=== PATIENT | female | born 1985 | race Caucasian/White ===

== ENCOUNTER 2017-05-27 12:53 | Inpatient (IN) | payer OTHER ==
[2017-05-27] MEDS ORDERED: Ondansetron INJ* 2 MG/ML VIAL IV ONE (16:09)
[2017-05-27] MEDS ORDERED: Morphine INJ* 4 MG/ML 1 ML SYRINGE IV ONE ×3 (16:09→21:08)
[2017-05-27] MEDS ORDERED: NS 0.9% 1000 ML* 1,000 ML IV ONE (16:09)
[2017-05-27 16:47] LABS: Hematocrit 34 % (35-47); Hemoglobin 11.5 g/dl (12.0-16.0); Mean Corpuscular HGB Conc 34 g/dl (31-36); Mean Corpuscular Hemoglobin 29 pg (27-31); Mean Corpuscular Volume 84 fL (80-97); Mean Platelet Volume 8 um3 (7.4-10.4); Red Blood Count 4.01 10^6/ul (4.0-5.4); Red Cell Distribution Width 13 % (10.5-15)
[2017-05-27 17:02] LABS: Albumin 3.4 g/dL (3.2-5.2); BUN/Creatinine Ratio 17.3 (8-20); C Reactive Protein 34.11 mg/L (< 5.00); Calcium 8.6 mg/dL (8.6-10.3); EGFR African American 175.7 (>60); EGFR Non-African American 136.7 (>60); Potassium 3.9 mmol/L (3.5-5.0); Total Bilirubin 0.4 mg/dL (0.2-1.0); Total Protein 7.4 g/dL (6.4-8.9)
--- NOTE | 2017-05-27 20:57 | RAD ---
Indication: Wrist abscess. Image sequences: Axial proton density, T2 fat sat, T1, sagittal STIR, coronal T2, coronal proton density and coronal T1-weighted images were obtained. Sagittal T1-weighted images were also obtained. Diffuse subcutaneous edema is noted. In the area of the palpable mass there is a fluid collection which appears to be within the flexor carpi ulnaris muscle. The fluid component measures approximately 11 x 10 mm. This is on the volar aspect of the muscle. There is diffuse edema throughout the remainder of the flexor carpi ulnaris muscle. This may represent an element of myositis. There is a small amount of fluid surrounding the flexor digitorum superficialis muscle and tendons at the level of the abscess. The ulnar nerve is otherwise unremarkable. No evidence of bone marrow edema is noted in the distal radius or ulna. The visualized carpal bones are grossly unremarkable. IMPRESSION: DIFFUSE SUBCUTANEOUS EDEMA AND LIKELY REACTIVE FLUID SURROUNDING THE FLEXOR DIGITORUM SUPERFICIALIS TENDONS. THERE IS A FLUID COLLECTION IN THE FLEXOR CARPI ULNARIS MUSCLE MEASURING APPROXIMATELY 10 X 11 MM. THERE IS HOWEVER DIFFUSE EDEMA THROUGHOUT THE REMAINDER OF THE VISUALIZED PORTIONS OF THE FLEXOR CARPI ULNARIS MUSCLE. THIS MAY REPRESENT AN ABSCESS WITH MYOSITIS.
[2017-05-27] MEDS ORDERED: Vancomycin(*) 1,000 MG in NS 0.9% 250 ML* 250 ML IVPB ONE (21:15)
--- NOTE | 2017-05-27 22:37 | ED ---
Arash Jalloh Auryana, scribed for Reyna Chu MD on 05/27/17 at 1605 . Skin Complaint - HPI Summary HPI Summary: 32 year old female presents with left arm pain, swelling, and erythema starting yesterday. Patient reports that 1.5 weeks ago used heroin - due to boyfriend's relapse. She reports hasn't used since her relapse 1.5 weeks ago and hadn't used prior to that for 4 years. She reports that she has had trouble moving her left wrist. Ibuprofen at 05:00 AM. She denies any fevers. 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 SHx is significant for tobacco use. - History of Current Complaint Chief Complaint: EDRashSkinAbscess Time Seen by Provider: 05/27/17 15:30 Stated Complaint: LT ARM INFECTION/PAIN Hx Obtained From: Patient Hx Last Menstrual Period: week ago Onset/Duration: Started Days Ago - yesterday, Still Present Skin Exposure Onset/Duration: Weeks Ago - 1.5 Timing: Constant Onset Severity: Moderate Current Severity: Severe Pain Intensity: 9 Pain Scale Used: 0-10 Numeric Skin Location: Discrete - at the left wrist Character: Swelling, Pain, Redness Aggravating Symptom(s): Other: - movement Associated Signs & Symptoms: Negative Related History: Other: - IVDA - Allergy/Home Medications Allergies/Adverse Reactions: Allergies Allergy/AdvReac Type Severity Reaction Status Date / Time No Known Allergies Allergy Verified 05/27/17 15:53 PMH/Surg Hx/FS Hx/Imm Hx Endocrine/Hematology History: Denies: Hx Anticoagulant Therapy, Hx Diabetes, Hx Thyroid Disease Cardiovascular History: Denies: Hx Hypertension, Hx Pacemaker/ICD Respiratory History: Denies: Hx Asthma, Hx Chronic Obstructive Pulmonary Disease (COPD) History: Reports: Hx Kidney Infection - hx stones Denies: Hx Renal Disease - Kidney Infections, Other Problems/Disorders - Hx of kidney stones Neurological History: Denies: Hx Dementia, Hx Seizures Psychiatric History: Reports: Hx Depression, Hx Community Mental Health Tx - Pt follows with MD Johnson at [facility], Hx Substance Abuse - Surgical History Surgery Procedure, Year, and Place: C Section Infectious Disease History: No Infectious Disease History: Reports: Hx Hepatitis - Hep C Denies: Hx Human Immunodeficiency Virus (HIV), Traveled Outside the [place] in Last 30 Days - Family History Known Family History: Positive: Cardiac Disease, Diabetes - Social History Alcohol Use: None Hx Substance Use: Yes Substance Use Type: Reports: Heroin Substance Use Comment - Amount & Last Used: see comment section below Hx Tobacco Use: Yes Smoking Status (MU): Current Every Day Smoker Type: Cigarettes Amount Used/How Often: 1/2 PPD Have You Smoked in the Last Year: Yes Review of Systems Constitutional: Negative Negative: Fever Eyes: Negative ENT: Negative Cardiovascular: Negative Respiratory: Negative Gastrointestinal: Negative Genitourinary: Negative Musculoskeletal: Negative Skin: Negative Neurological: Negative Psychological: Normal All Other Systems Reviewed And Are Negative: Yes Physical Exam - Summary Physical Exam Summary: General: Well appearing, no pain distress Skin: Warm, Skin Color Reflects Adequate Perfusion, Dry. left wrist with erythema over the flexor of the surface of the wrist - 20 cm by 10 cm. Eyes: EOMI, EUGENE ENT: Pharynx normal, TMs normal Neck: Supple, nontender Respiratory: CTA, breath sounds present, no rhonchi, no wheezes, no rales Cardiovascular: RRR, no murmur, no rub, no gallop Abdomen: Soft, nontender, Non-distended, no guarding, no rebound Bowel: Present Musculoskeletal: ANGY, No edema Neuro: Sensory/motor intact, A&Ox3, CN intact 2-12 Psych: Affect/mood appropriate Triage Information Reviewed: Yes Vital Signs On Initial Exam: Initial Vitals Temp Pulse Resp BP Pulse Ox 97.5 F 80 16 140/76 100 05/27/17 12:57 05/27/17 12:57 05/27/17 12:57 05/27/17 12:57 05/27/17 12:57 Vital Signs Reviewed: Yes Diagnostics - Vital Signs Vital Signs Temp Pulse Resp BP Pulse Ox 05/27/17 14:28 98.4 F 81 16 121/74 100 05/27/17 12:57 97.5 F 80 16 140/76 100 - Laboratory Lab Results: Lab Results 05/27/17 05/27/17 05/27/17 Range/Units 16:40 16:40 16:40 WBC 10.0 (3.5-10.8) 10^3/ul RBC 4.01 (4.0-5.4) 10^6/ul Hgb 11.5 L (12.0-16.0) g/dl Hct 34 L (35-47) % MCV 84 (80-97) fL MCH 29 (27-31) pg MCHC 34 (31-36) g/dl RDW 13 (10.5-15) % Plt Count 202 (150-450) 10^3/ul MPV 8 (7.4-10.4) um3 Neut % (Auto) 70.2 (38-83) % Lymph % (Auto) 20.7 L (25-47) % Lanier % (Auto) 6.6 (1-9) % Eos % (Auto) 1.0 (0-6) % Baso % (Auto) 1.5 (0-2) % Absolute Neuts (auto) 7.0 (1.5-7.7) 10^3/ul Absolute Lymphs (auto) 2.1 (1.0-4.8) 10^3/ul Absolute Monos (auto) 0.7 (0-0.8) 10^3/ul Absolute Eos (auto) 0.1 (0-0.6) 10^3/ul Absolute Basos (auto) 0.1 (0-0.2) 10^3/ul Absolute Nucleated RBC 0 10^3/ul Nucleated RBC % 0 Sodium 136 (133-145) mmol/L Potassium 3.9 (3.5-5.0) mmol/L Chloride 107 (101-111) mmol/L Carbon Dioxide 24 (22-32) mmol/L Anion Gap 5 (2-11) mmol/L BUN 9 (6-24) mg/dL Creatinine 0.52 (0.51-0.95) mg/dL Est GFR ( Amer) 175.7 (>60) Est GFR (Non-Af Amer) 136.7 (>60) BUN/Creatinine Ratio 17.3 (8-20) Glucose 96 (70-100) mg/dL Lactic Acid 0.6 (0.5-2.0) mmol/L Calcium 8.6 (8.6-10.3) mg/dL Total Bilirubin 0.40 (0.2-1.0) mg/dL AST 14 (13-39) U/L ALT 13 (7-52) U/L Alkaline Phosphatase 62 (34-104) U/L C-Reactive Protein 34.11 H (< 5.00) mg/L Total Protein 7.4 (6.4-8.9) g/dL Albumin 3.4 (3.2-5.2) g/dL Globulin 4.0 (2-4) g/dL Albumin/Globulin Ratio 0.9 L (1-3) Result Diagrams: 05/27/17 16:40 05/27/17 16:40 Lab Statement: Any lab studies that have been ordered have been reviewed, and results considered in the medical decision making process. - Additional Comments Diagnostic Additional Comments: MRI UPPER EXTREMITY LEFT : IMPRESSION: DIFFUSE SUBCUTANEOUS EDEMA AND LIKELY REACTIVE FLUID SURROUNDING THE FLEXOR DIGITORUM SUPERFICIALIS TENDONS. THERE IS A FLUID COLLECTION IN THE FLEXOR CARPI ULNARIS MUSCLE MEASURING APPROXIMATELY 10 X 11 MM. THERE IS HOWEVER DIFFUSE EDEMA THROUGHOUT THE REMAINDER OF THE VISUALIZED PORTIONS OF THE FLEXOR CARPI ULNARIS MUSCLE. THIS MAY REPRESENT AN ABSCESS WITH MYOSITIS. Course/Dx - Course Course Of Treatment: 32 yo female on suboxone with a relapse about 7 days ago with abscess for flexor surface of wrist concerning for wrist held in flexion and fingers held in flexion with pain with passive extension. Case discussed with Dr. Le who suggested mri to rule out flexor sheath involvement, mri does show involvement and pt was given 1gram of vanco and admitted by Dr. Le for wash out tomorrow am - Diagnoses Provider Diagnoses: Infection of flexor tendon sheath, Abscess, wrist, IVDU (intravenous drug user) - Physician Notifications Discussed Care Of Patient With: Haider Le Time Discussed With Above Provider: 16:25 - recommends MRI adn admission Discharge - Discharge Plan Condition: Stable Disposition: ADMITTED TO [facility] Referrals: Jax Vazquez MD [Primary Care Provider] - The documentation as recorded by the Arash figueroa Auryana accurately reflects the service I personally performed and the decisions made by me, Reyna Chu MD.
[2017-05-27] MEDS ORDERED: Ondansetron TAB* 4 MG PO PRN (23:36)
[2017-05-27] MEDS ORDERED: Ondansetron INJ* 2 MG/ML VIAL IV PRN (23:36)
[2017-05-27] MEDS ORDERED: diPHENhydraMINE PO* 25 MG PO PRN (23:37)
[2017-05-27] MEDS ORDERED: diPHENhydraMINE IV* 50 MG/ML 1 ml VIAL (BENADRYL) IV PRN (23:37)
[2017-05-27] MEDS: NS 0.9% 1000 ML* 1,000 ML IV SCH (23:50)
[2017-05-28] MEDS: Morphine INJ* 2 MG/ML 1 ML SYRINGE IV PRN ×2 (00:23→04:18)
[2017-05-28] MEDS: Acetaminophen TAB* 325 MG PO PRN ×2 (00:26→21:30)
[2017-05-28] MEDS ORDERED: Nicotine Patch Removal NOTE FOLLOW UP SCH (06:00)
[2017-05-28] MEDS: Morphine INJ* 4 MG/ML 1 ML SYRINGE IV PRN ×5 (06:26→23:27)
[2017-05-28] MEDS: Nicotine PATCH 21 MG/24 HR* PATCH TRANSDERM SCH (06:26)
[2017-05-28] MEDS: Nicotine Inhaler* 10 MG AMP INH PRN ×3 (06:27→23:30)
[2017-05-28] MEDS: Nicotine GUM* 2 MG PO PRN ×3 (06:28→18:47)
[2017-05-28] MEDS ORDERED: Vancomycin per Pharmacy* NOTE FOLLOW UP PRN (07:32)
[2017-05-28] MEDS ORDERED: VANCOMYCIN 1500 MG X 1 DOSE, THEN PER PHARMACY PROTOCOL IVPB ONE ×2 (08:00)
[2017-05-28] MEDS ORDERED: Vancomycin(*) 1,000 MG in NS 0.9% 250 ML* 250 ML IVPB SCH (08:00)
--- NOTE | 2017-05-28 08:46 | HP ---
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 The patient states that she uses "oxy," oxymorphone as her IV drug abuse drug of choice. The patient states that she had been clean for 4 years until she relapsed, 6 and then 5 days ago, 05/22/17 and 05/23/17. The patient did inject with a needle about the distal volar left forearm, more ulnar than radial. The patient just in the last 2 days, she thinks beginning on approximately 05/26, she started developing pain, redness, and swelling of the distal forearm. No fever, sweats, chills. The patient presented to the emergency room for evaluation. I spoke to emergency room attending last night. There was no discrete fluid collection palpable on physical exam amenable to drainage. MRI scan was ordered last night and interpreted as showing a 1 cm x 1 cm fluid collection. The decision was made to admit the patient for IV antibiotics, and a possible drainage. PAST MEDICAL HISTORY: None. PAST SURGICAL HISTORY: section x2. MEDICATIONS: 1. Buprenorphine. 2. Gabapentin. 3. Iron. 4. MiraLAX. 5. Nicotine gum. ALLERGIES: No known drug allergies. REVIEW OF SYSTEMS: No fever, sweats, chills. No other joint pain or soft tissue pain. No current nausea or vomiting. PHYSICAL EXAMINATION: VITALS: At 4:28 a.m. on May 28 were as follows: temperature 98.9 degrees Fahrenheit, pulse 65, blood pressure 108/59, respirations 16, O2 sat 97% on room air. GENERAL: No acute distress, alert and oriented, appropriate mood and affect, appropriate dress and hygiene for a patient. The patient has multiple tattoos throughout her body. Gait not assessed as the patient was supine in a hospital bed, well coordinated bilateral upper and lower extremities. The patient appears comfortable in no acute distress. EXTREMITIES: Left upper extremity exam reveals no palpable or tender axillary or epitrochlear lymphadenopathy. No erythematous streaking. The patient has some soft tissue swelling about the distal volar ulnar forearm. I would describe this area as approximately 9 cm long x 6 cm wide. I marked the borders of the skin erythema with a pen and wrote the date in pen on her skin. There is some small-healed over puncture wound close to the center of this area of soft tissue swelling and erythema. The patient has tenderness to palpation. There is no clear superficial fluctuance detected by digital palpation. Distally, the patient is fully neurovascularly intact. She has no pain whatsoever with full passive range of motion of all digits. The patient has no pain with passive range of motion of the wrist through a limited arc of motion, 70 degrees of wrist flexion to 10 degrees of wrist extension. With additional wrist extension passively, the patient does have pain. No wound drainage. LABORATORY VALUES: White blood cell count 10.0 at 4:40 p.m. on May 27. At that same time, the patient has a CRP of 34.11. IMAGING: MRI of the patient's left wrist was obtained. It demonstrates a possible fluid collection, small, 11 x 10 mm within the flexor carpi ulnaris muscle distally, close to the wrist. There is diffuse inflammation in the flexor carpi ulnaris muscle running from that point more proximally. There is much more subtle inflammation noted about the FTS tendons. Radiologist read this as a possible abscess with myositis and I concur. However, the collection is very heterogeneous in appearance. ASSESSMENT: 1. Left forearm/wrist cellulitis. 2. Left flexor carpi ulnaris myositis and possible abscess. PLAN: 1. The patient was admitted last night for IV antibiotics. She was given a dose of vancomycin 1 g IV and scheduled to receive it every 12 hours. 2. The patient was made n.p.o. after midnight prior to my examining her this morning. 3. We will obtain new inflammatory labs including white blood cell count and CRP this morning. 4. I am going to consider IV antibiotics versus drainage under ultrasound and radiology versus operative decompression of abscess. While there is no emergent need for surgical decompression, I believe that there is an urgent need for decompression to avoid significant tendon injury and spread of infection. IV antibiotic alone are less likely to be effective given the likely fluid collection and the magnitude of the patient's soft tissue swelling , induration, erythema, and clear discomfort. [id number]/CPS #: [id number]/CPS #: [id number] [facility]
[2017-05-28 09:13] LABS: Hematocrit 33 % (35-47); Hemoglobin 11.2 g/dl (12.0-16.0); Mean Corpuscular HGB Conc 34 g/dl (31-36); Mean Corpuscular Hemoglobin 29 pg (27-31); Mean Corpuscular Volume 85 fL (80-97); Mean Platelet Volume 8 um3 (7.4-10.4); Red Blood Count 3.83 10^6/ul (4.0-5.4); Red Cell Distribution Width 13 % (10.5-15)
--- NOTE | 2017-05-28 09:18 | HP ---
HISTORY AND PHYSICAL: * ADDENDUM: PHYSICAL EXAMINATION VITALS: At 4:28 a.m. on May 28 were as follows; temperature 98.9 degrees Fahrenheit, pulse 65, blood pressure 108/59, respirations 16, O2 sat 97% on room air. GENERAL: No acute distress, alert and oriented, appropriate mood and affect, appropriate dress and hygiene for a patient. The patient has multiple tattoos throughout her body. Gait not assessed as the patient was supine in a hospital bed, well coordinated bilateral upper and lower extremities. The patient appears comfortable in no acute distress. EXTREMITIES: Left upper extremity exam reveals no palpable or tender axillary or epitrochlear lymphadenopathy. No erythematous streaking. The patient has some soft tissue swelling about the distal volar ulnar forearm. I would describe this area as approximately 9 cm long x 6 cm wide. I marked the borders of the skin erythema with a pen and placed . There is some small- healed over puncture wound close to the center of this area of soft tissue swelling and erythema. The patient has tenderness to palpation. There is no clear superficial fluctuance detected by digital palpation. Distally, the patient is fully neurovascularly intact. She has no pain whatsoever with full passive range of motion of all digits. The patient has no pain with passive range of motion of the wrist through a limited arc of motion, 70 degrees of wrist flexion to 10 degrees of wrist extension. With additional wrist extension passively, the patient does have pain. No wound drainage. LABORATORY VALUES: White blood cell count 10.0 at 4:40 p.m. on May 27. At that same time, the patient has a CRP of 34.11. IMAGING: MRI of the patient's left wrist was obtained. It demonstrates a possible fluid collection, small, 11 x 10 mm within the flexor carpi ulnaris muscle distally, close to the wrist. There is diffuse inflammation in the flexor carpi ulnaris muscle running from that point more proximally. There is much more subtle inflammation noted about the FTS tendons. Radiologist read this as a possible abscess with myositis and I concur. However, the collection is very heterogeneous in appearance. ASSESSMENT: 1. Left forearm/wrist cellulitis. 2. Left flexor carpi ulnaris myositis and possible abscess. PLAN: 1. The patient was admitted last night for IV antibiotics. She was given a dose of vancomycin 1 g IV and scheduled to receive it every 12 hours. 2. The patient was made n.p.o. after midnight prior to my examining her this morning. 3. We will obtain new inflammatory labs including white blood cell count and CRP this morning. 4. I am going to consider IV antibiotics versus drainage under ultrasound and radiology versus operative decompression of abscess. There is no emergent need for surgical decompression, but IV antibiotics alone are less likely to be effective given the likely fluid collection and the magnitude of the patient's soft tissue swelling, induration, erythema. [id number]/[facility] #: [id number] [facility]
--- NOTE | 2017-05-28 09:38 | PN ---
Progress Note - Progress Note Date of Service: 05/28/17 SOAP: Subjective: []Patient seen at bedside, awakened upon entering room. C/o increased pain left volar/ulnar forearm. Objective: [] Vital Signs Temp 98.7 F 05/28/17 07:21 Pulse 77 05/28/17 07:21 Resp 16 05/28/17 08:00 BP 126/66 05/28/17 07:21 Pulse Ox 96 05/28/17 07:21 Intake & Output 05/27/17 05/28/17 05/28/17 18:59 06:59 18:59 Intake Total 1000 577 Output Total 150 Balance 1000 427 Weight 175 lb 175 lb Intake: IV Fluids 1000 457 NS (0.9%) 457 Oral 120 Output: Urine 150 Laboratory Results - last 24 hr 05/27/17 05/27/17 05/27/17 16:40 16:40 16:40 WBC 10.0 RBC 4.01 Hgb 11.5 L Hct 34 L MCV 84 MCH 29 MCHC 34 RDW 13 Plt Count 202 MPV 8 Neut % (Auto) 70.2 Lymph % (Auto) 20.7 L Summers % (Auto) 6.6 Eos % (Auto) 1.0 Baso % (Auto) 1.5 Absolute Neuts (auto) 7.0 Absolute Lymphs (auto) 2.1 Absolute Monos (auto) 0.7 Absolute Eos (auto) 0.1 Absolute Basos (auto) 0.1 Absolute Nucleated RBC 0 Nucleated RBC % 0 Sodium 136 Potassium 3.9 Chloride 107 Carbon Dioxide 24 Anion Gap 5 BUN 9 Creatinine 0.52 Est GFR ( Amer) 175.7 Est GFR (Non-Af Amer) 136.7 BUN/Creatinine Ratio 17.3 Glucose 96 Lactic Acid 0.6 Calcium 8.6 Total Bilirubin 0.40 AST 14 ALT 13 Alkaline Phosphatase 62 C-Reactive Protein 34.11 H Total Protein 7.4 Albumin 3.4 Globulin 4.0 Albumin/Globulin Ratio 0.9 L 05/28/17 05/28/17 08:38 08:38 WBC 10.0 RBC 3.83 L Hgb 11.2 L Hct 33 L MCV 85 MCH 29 MCHC 34 RDW 13 Plt Count 190 MPV 8 Neut % (Auto) Lymph % (Auto) Summers % (Auto) Eos % (Auto) Baso % (Auto) Absolute Neuts (auto) Absolute Lymphs (auto) Absolute Monos (auto) Absolute Eos (auto) Absolute Basos (auto) Absolute Nucleated RBC Nucleated RBC % Sodium Potassium Chloride Carbon Dioxide Anion Gap BUN Creatinine Est GFR ( Amer) Est GFR (Non-Af Amer) BUN/Creatinine Ratio Glucose Lactic Acid Calcium Total Bilirubin AST ALT Alkaline Phosphatase C-Reactive Protein 65.62 H Total Protein Albumin Globulin Albumin/Globulin Ratio Left distal volar ulnar forearm indurated, erythematous and exquisitely tender to palpation. Has AROM of fingers but cannot make a fist due to pain in forearm. Sensation and circulation distally intact Assessment: []Left distal volar forearm abscess Plan: []NPO for I&D left forearm with Dr. Le today
[2017-05-28] MEDS ORDERED: ceFAZolin 1 GM in Dextrose (*) 1 GM/50 ML BAG IVPB ONE (12:07)
[2017-05-28] MEDS ORDERED: Morphine INJ* 10 MG/ML 1 ML SYRINGE ONE (12:10)
[2017-05-28] MEDS ORDERED: ceFAZolin VIAL(*) 1 GM in NS 0.9% 50 ML* 50 ML IVPB ONE (12:11)
[2017-05-28] MEDS ORDERED: Morphine INJ* 2 MG/ML 1 ML SYRINGE IV PRN (12:11)
[2017-05-28 12:32] LABS: UR Preg Internal Control QC Line Present
[2017-05-28 12:33] LABS: Manual Entry Verification JEA0012
[2017-05-28] MEDS ORDERED: Bupivacaine 0.5% W/EPI SDV* 10 ML VIAL INJ ONE ×2 (13:22→13:23)
[2017-05-28] MEDS ORDERED: Midazolam* 1 MG/ML 2 ML VIAL (2 MG) ONE (13:43)
[2017-05-28] MEDS ORDERED: fentaNYL* 50 MCG/ML 2 ML VIAL (100 MCG VIAL) ONE (13:43)
[2017-05-28] MEDS ORDERED: Lidocaine 2% PF * 5 ML VIAL ONE (13:57)
[2017-05-28] MEDS ORDERED: Ondansetron INJ* 2 MG/ML VIAL ONE (13:57)
[2017-05-28] MEDS ORDERED: Propofol* 10 MG/ML 20 ML BTL IV PUSH ONE (13:57)
[2017-05-28] MEDS ORDERED: Dexamethasone IV* 4 MG/ML 1 ML (4 MG) ONE (13:57)
[2017-05-28] MEDS ORDERED: Metoclopramide IV* 5 MG/ML 2 ML VIAL IV PRN (14:57)
[2017-05-28] MEDS ORDERED: PROCHLORPERAZINE INJ 5 MG/ML 2 ML VIAL IV PRN (14:57)
[2017-05-28] MEDS ORDERED: diPHENhydraMINE IV* 50 MG/ML 1 ml VIAL (BENADRYL) IV PRN (15:04)
[2017-05-28] MEDS ORDERED: Morphine INJ* 4 MG/ML 1 ML SYRINGE ONE (15:32)
[2017-05-28] MEDS: Vancomycin(*) 1,000 MG in NS 0.9% 250 ML* 250 ML IVPB SCH ×2 (15:58→19:32)
[2017-05-28] MEDS: traMADol TAB* 50 MG PO PRN ×2 (16:36→23:26)
[2017-05-28] MEDS: NS 0.9% 1000 ML* 1,000 ML IV SCH (18:30)
[2017-05-28] MEDS: Nicotine Patch Removal NOTE PATCH OFF SCH (21:28)
[2017-05-29] MEDS: Vancomycin(*) 1,000 MG in NS 0.9% 250 ML* 250 ML IVPB SCH (02:18)
[2017-05-29] MEDS: Morphine INJ* 4 MG/ML 1 ML SYRINGE IV PRN ×3 (03:49→15:59)
[2017-05-29] MEDS: traMADol TAB* 50 MG PO PRN ×3 (05:49→18:57)
[2017-05-29] MEDS: Nicotine PATCH 21 MG/24 HR* PATCH TRANSDERM SCH (05:49)
[2017-05-29 07:22] LABS: EGFR African American 231.2 (>60); EGFR Non-African American 179.8 (>60)
[2017-05-29] MEDS ORDERED: Vancomycin Trough Check NOTE FOLLOW UP ONE (07:30)
--- NOTE | 2017-05-29 07:35 | PN ---
Progress Note - Progress Note Date of Service: 05/29/17 SOAP: Subjective: Pain decreased. Objective: LUE: - incision is loosely closed - no pus visible - packing in place - NVID - only trace erythema about the distal volar forearm- significant improvement - swelling reduced but still present, forearm and hand - NVID Microbiology 05/28/17 14:18 Wound Skin and Soft Tissue MRSA/MSSA (PCR - Final Mrsa Negative S.aureus Negative Selected Entries 05/29/17 03:51 Temperature 97.5 F Pulse Rate 75 Respiratory 16 Rate Blood Pressure 129/66 (mmHg) O2 Sat by Pulse 96 Oximetry Laboratory Tests 05/27/17 05/27/17 05/28/17 16:40 16:40 08:38 WBC 10.0 C-Reactive Protein 34.11 H 65.62 H 05/28/17 08:38 WBC 10.0 C-Reactive Protein Assessment: POD 1 I&D L forearm abscess in FCU tendon/muscle Plan: - Warm soapy soak to wound 15 minutes twice a day by nursing, then reapply DSD and splint - Continue to follow cultures - Will change from Vanco to Ancef given MRSA negative - Continue pain control with Morphine and Tramadol; outpatient Buprenorphine being held - I will examine tomorrow AM again
[2017-05-29] MEDS: NS 0.9% 1000 ML* 1,000 ML IV SCH ×2 (07:54→19:40)
[2017-05-29] MEDS: Nicotine GUM* 2 MG PO PRN ×4 (07:58→21:10)
[2017-05-29 08:12] LABS: Vancomycin Trough 10.9 mcg/mL
[2017-05-29] MEDS: ceFAZolin VIAL(*) 1 GM in NS 0.9% 50 ML* 50 ML IVPB SCH ×3 (08:45→23:34)
[2017-05-29] MEDS: Acetaminophen TAB* 325 MG PO PRN ×2 (08:49→21:10)
[2017-05-29] MEDS: Nicotine Inhaler* 10 MG AMP INH PRN ×2 (13:03→18:57)
[2017-05-29] MEDS ORDERED: Senna TAB PO PRN (20:36)
[2017-05-29] MEDS ORDERED: Polyethylene Glycol 3350* 17 GM PACKET PO PRN (20:37)
[2017-05-29] MEDS: Magnesium Hydroxide LIQ* 30 ML UDC PO PRN (21:10)
[2017-05-29] MEDS: Docusate CAP* 100 MG PO SCH (21:10)
[2017-05-29] MEDS: Nicotine Patch Removal NOTE PATCH OFF SCH (22:23)
[2017-05-30] MEDS: NS 0.9% 1000 ML* 1,000 ML IV SCH (06:08)
[2017-05-30] MEDS: traMADol TAB* 50 MG PO PRN ×3 (06:08→23:55)
[2017-05-30] MEDS: Nicotine PATCH 21 MG/24 HR* PATCH TRANSDERM SCH (06:08)
[2017-05-30] MEDS: ceFAZolin VIAL(*) 1 GM in NS 0.9% 50 ML* 50 ML IVPB SCH ×3 (07:49→23:55)
[2017-05-30] MEDS: Docusate CAP* 100 MG PO SCH ×2 (07:50→20:26)
--- NOTE | 2017-05-30 07:53 | PN ---
Progress Note - Progress Note Date of Service: 05/30/17 SOAP: Subjective: Decreasing pain. Moving fingers to avoid stiffness. Overnight had some constipation and GI prn meds including laxatives provided. No abdominal discomfort, N/V now. Objective: LUE: - Incision has some murky fluid in it. Wick in place - NVID - Erythema unchanged since yesterday, faint about incision - Swelling similar to yesterday, perhaps slightly decreased wrist, hand Microbiology 05/28/17 14:18 Wound Gram Stain - Final Selected Entries 05/30/17 03:36 Temperature 97.7 F Pulse Rate 53 Respiratory 16 Rate Blood Pressure 113/63 (mmHg) O2 Sat by Pulse 100 Oximetry Laboratory Tests 05/27/17 05/27/17 05/28/17 16:40 16:40 08:38 WBC 10.0 C-Reactive Protein 34.11 H 65.62 H 05/28/17 08:38 WBC 10.0 C-Reactive Protein Assessment: POD 2 L forearm/FCU abscess I&D Cx likely strep Plan: - Continue Ancef IV - Follow cultures and sensitivities - BID warm, soapy soaks of wound x 20 minutes. This is very important. - Splint while resting - Patient will move fingers to prevent stiffness - I am pulling wick out 1 cm each day when I round - Wound still has purulence. Anticipate requirement of IV antibiotics for at least 2 more days. So anticipate patient requiring inpatient status through Friday/Friday.
[2017-05-30] MEDS: Nicotine Inhaler* 10 MG AMP INH PRN ×2 (11:44→17:44)
[2017-05-30] MEDS: Nicotine GUM* 2 MG PO PRN ×3 (11:44→20:26)
[2017-05-30] MEDS ORDERED: Fluconazole 100 MG TAB* TAB PO ONE (12:36)
--- NOTE | 2017-05-30 19:39 | OP ---
OPERATIVE REPORT: DATE OF OPERATION: 05/28/17 DATE OF : 85 SURGEON: Haider Le MD PULP GRINDER: MADI Caba ANESTHESIOLOGIST: Jessica Galindo MD ANESTHESIA: General anesthesia. PRE-OP DIAGNOSIS: Likely left distal forearm abscess, including flexor carpi ulnaris tendon. POST-OP DIAGNOSIS: Abscess left forearm, including flexor carpi ulnaris, flexor carpi ulnaris muscle and tendon sheath. OPERATIVE PROCEDURE: Incision, irrigation and debridement, left forearm, deep abscess, including muscle, flexor carpi ulnaris. 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 The patient described herself as an oxycodone or oxymorphone user. I heard through an intermediary that the patient tends to use drugs by crushing up pills and then injecting some form of that. The patient told me that she had been clean for 4 years until she relapsed on and 05/23/17, 6 and then 5 days ago. The patient did inject with a needle about the distal volar left forearm, more ulnar than radial. The patient on approximately 05/26/17, started developing pain, redness, and swelling in the left distal volar forearm. The patient went to the emergency room for evaluation. I spoke to the emergency room attending. There was no clear superficial fluid collection amenable to drainage in the emergency department. I requested an MRI scan be ordered to look for a deep fluid collection. This was read as showing 1 x 1 cm fluid collection about the FCU tendon as well as significant inflammatory changes along the tendon. I recommended admission to my service for IV antibiotics and possible drainage the following day in the operating room. The patient was made n.p.o. after midnight. On exam, the morning of the procedure, the patient was noted to have significant soft tissue swelling about the distal volar ulnar forearm. I described this area as approximately 9 x 6 cm in size. There was a small healed over puncture wound close to the center of this area, significant tenderness to palpation. Pain with full passive extension of the wrist. No wound drainage. Review of the MRI demonstrates the above-mentioned fluid collection, but as well there is a significant inflammation essentially along much of the length of the FCU muscle. There is a question of small amount of inflammation about the FDS tendons. The patient had been started on IV vancomycin in the emergency department for the broadest possible coverage. I made the decision to perform an irrigation and debridement in the operating room. When I reevaluated the patient after my first case, in just a few hours, the swelling in the distal forearm had increased significantly, despite being on IV vancomycin, so an operative debridement was clearly the correct move. Discussed benefits, risks, and potential complications with the patient. She agreed with the surgery idea. IV FLUIDS: 1300 cc crystalloid. ANTIBIOSIS: 1 g of Ancef, delivered after cultures have been obtained. TOURNIQUET TIME: 37 minutes at 250 mmHg. COMPLICATIONS: None. SPECIMENS: Anaerobic and aerobic culture swabs x2. IMPLANTS: None. DESCRIPTION OF PROCEDURE: Preoperative written consent. Operative extremity was marked in preoperative holding. The patient was taken back to the operating room and kept on the stretcher. The patient was sedated and general anesthesia was applied. Table was rotated. Hand table was put into place. A tourniquet was placed about the left upper arm. The left upper extremity was prepped and draped. Surgical time-out was performed. Esmarch was applied and tourniquet was elevated to 250 mmHg. I marked the skin for my skin incision. While the FCU tendon was not well palpable given the significant swelling about the distal forearm, I was able to palpate the pisiform bone. I had measured the fluid collection on MRI to be 2 cm proximal to the distal tip of the ulnar styloid process. Therefore, I created a cross-rodriguez in the skin on that location to know exactly where that fluid collection will be located. I cory with marking pen my intended incision , longitudinal down the ulnar aspect of the volar forearm, in line with the pisiform bone. Incision was made. Incision eventually ended up by 7 to 8 cm long, but started out at perhaps 4 cm. Incised through superficial subcutaneous tissue with the knife blade. As soon as that layer had been gone through, pus started to become visible. I used dissection scissors and spreading dissection to dissect a deeper subcutaneous tissue. I came down immediately on the FCU tendon and muscle. Александр pus was present. Culture swabs were obtained and this was cleaned out with a sponge. Below the pus, there was some what looked to be liquified tissue. Irrigation with cystoscopy tubing small amount was performed to clear the pus and liquified necrotic tissue out. I was then able to well visualize the FCU tendon. Fortunately, there was no gross damage to the tendon itself. Likewise, the muscle looked relatively spared. I passed a curette proximal down the tendon sheath of the FCU. This produced more pus from proximal. Therefore, at this point, I extended the skin incision and deeper incisions proximally, ending up with approximately an 8-cm longitudinal incision. I next irrigated using cystoscopy tubing approximately 1 L of normal saline. I milked the wrist with extension and flexion and probed proximally to try to obtain additional pus. No additional pus was encountered. The tendon sheath superficial had been eroded through and was not appreciable as a discrete structure. The fascial layer deep to the FCU and radial to it was fully intact, the FCU from the ulnar nerve and artery, so those were not encountered in the procedure. I used dissection scissors, a curette, and mini rongeur to remove any remaining looking tissue. There was no clear track leading from the FCU tendon sheath to the FDS tendons. Therefore, I did not create such a pass. I explored the wound proximally and distally and made sure that all purulent material had been removed. I irrigated with significant amount of normal saline. At this point, I probably irrigated with an additional 4.5 L of normal saline. Next performed a closure, loose, with simple stitches using a monofilament nylon suture. I left a significant length of iodoform packing, half inch, in the wound and poking though the wound. Applied 4x4s and sterile Webril. Some additional minimal irrigation had been used during the closure and so approximately 6 L of total irrigant was used to clean out this wound. After the sterile Webril had been placed, the tourniquet was dropped at 37 minutes. A volar wrist splint extending to the fingertips with the hand in a position of comfort was applied. Stephen bandage overwrapped. The patient was awakened and transferred to the PACU. Of note, I had Anesthesia infuse 1 g of Ancef IV because it had been approximately 3 hours since the previous antibiotic dose, vancomycin. I wanted the patient to have IV antibiotics within an hour of incision. This was infused after cultures were obtained. DISPOSITION: The plan is for the patient to be readmitted to my service and to receive IV antibiotics. The patient will continue to receive vancomycin IV, dosed by me initially, although the pharmacy took over dosing of that. I will do a wound check on postoperative day #1 and then we will remove that packing 1 cm per day starting on postoperative day #1. The patient will have soaks with warm soapy water. I made a closure very loose, although as needed I can make it looser with removal of 1 or 2 stitches, if I feel like the skin is healing prematurely prior to the discharge of all infected material. I will follow cultures and adjust antibiotic treatment as appropriate. [id number]/CPS #: [id number] MARTIN
[2017-05-30] MEDS: Acetaminophen TAB* 325 MG PO PRN (20:23)
[2017-05-30] MEDS: Nicotine Patch Removal NOTE PATCH OFF SCH (21:35)
[2017-05-31] MEDS: NS 0.9% 1000 ML* 1,000 ML IV SCH (03:02)
[2017-05-31] MEDS: traMADol TAB* 50 MG PO PRN ×3 (07:48→21:57)
[2017-05-31] MEDS: ceFAZolin VIAL(*) 1 GM in NS 0.9% 50 ML* 50 ML IVPB SCH ×3 (07:49→23:55)
[2017-05-31] MEDS: Docusate CAP* 100 MG PO SCH ×2 (07:49→20:34)
[2017-05-31] MEDS: Nicotine PATCH 21 MG/24 HR* PATCH TRANSDERM SCH (07:49)
--- NOTE | 2017-05-31 09:49 | PN ---
Progress Note - Progress Note Date of Service: 05/31/17 SOAP: Subjective: S/P left forearm abscess I&D. Feeling better, states that pain is well controlled and improved from admission. Denies f/c Objective: Vitals: Temp Pulse Resp BP Pulse Ox 97.9 F 66 16 134/80 95 05/31/17 07:39 05/31/17 07:39 05/31/17 08:00 05/31/17 07:39 05/31/17 07:39 Gen: A&Ox3, NAD at rest laying in bed LUE: Incision with packing in place, still with mild purulent d/c. Minimal edema and surrounding erythema. Full f/e at MCP, PIP and DIP joints with minimal pain. N/V intact Assessment: S/P left forearm abscess I&D Plan: Packing removed 1 cm, dry dressing reapplied. Continue warm water soaks Continue IV abx
--- NOTE | 2017-05-31 11:10 | CONSULT ---
Subjective Date of Service: 05/31/17 Interval History: Ms. Kathleen Coronado is a 32 yo female who presented to the ED on 05/27/17 with left distal forearm pain, redness and swelling. She has a history of IVDU and has been injecting oxymorphone into the distal volar left forearm. (Of note, ED provider note states patient may have reported heroin use). She was admitted to the ortho service with concern for left forearm/wrist cellulitis and left flexor carpi ulnaris myositis with possible abscess. The patient is lying in bed. She reports generalized achiness and muscle pains and endorses some nausea, but denies abd pain, diarrhea. She reports poor appetite. Last night she reports having chest discomfort that started in her throat and went down into her upper chest and radiated into her back. It has been intermittent, is non-reproducible. Patient states it feels worse sitting up. She denies any diaphoresis or accompanying shortness of breath and reports that it feels like "when you swallow hard and something gets stuck in your chest " but denies eating anything recently to promote that feeling. She reports being clean x 4 years and recently relapsing and using oxymorphone. She states prior to this, she was doing well on her Subutex. Family History: Findings - Reports hx of heart disease in one grandfather and DM in another grandfather Social History: Findings - Lives alone, current smoker. 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 Records indicate history of hepatitis C. Hx of Review of Systems - Measurements Intake and Output: Intake and Output Last 24 Hours 05/29/17 05/30/17 05/31/17 06/01/17 06:59 06:59 06:59 06:59 Intake Total 4621 4720 3227 300 Output Total 2350 850 2500 650 Balance 2271 3870 727 -350 Intake: IV Fluids 2766 2190 1422 LR 1400 NS (0.9%) 1316 2190 1422 NS 50ML, Cefazolin 1G 50 IVPB 770 115 ABX - CEFAZOLIN 115 ABX - VANCOMYCIN 770 Oral 1085 2530 1690 300 Output: Urine 2350 850 2500 650 Other: Estimated Void Medium # Bowel Movements 0 Estimated Stool Amount Medium # Voids 1 - Review of Systems Constitutional Symptoms: Positive: Fatigue Negative: Fever, Night Sweats Pulmonary: Negative: Cough, Hemoptysis, Wheezing, Respiratory Distress Cardiology: Positive: Chest Pain Negative: Shortness of Breath, Palpitations, Edema, Syncope Gastroenterology: Positive: Nausea Negative: Abdominal Pain, Vomiting, Constipation, Diarrhea Genital - Urinary: Negative: Dysuria, Hematuria Endocrinology: Negative: Thyroid Problems, Family Hx Endocrine Disorders, Diabetes Mellitus Neurology: Negative: Headache, Change in Vision, Dizziness, Numbness\\Paresthesiae, Unexplained Weakness Objective Active Medications: Acetaminophen (Tylenol Tab*) 650 mg PO Q6H PRN PRN Reason: PAIN/FEVER Last Admin: 05/30/17 20:23 Dose: 650 mg Diphenhydramine HCl (Benadryl Po*) 25 mg PO Q6H PRN PRN Reason: ITCHING Last Admin: 05/28/17 00:23 Dose: 25 mg Diphenhydramine HCl (Benadryl Iv*) 25 mg IV Q6H PRN PRN Reason: Itching or insomnia Docusate Sodium (Colace Cap*) 100 mg PO BID [facility] Last Admin: 05/31/17 07:49 Dose: 100 mg Sodium Chloride (Ns 0.9% 1000 Ml*) 1,000 mls @ 100 mls/hr IV .PER RATE [facility] Last Admin: 05/31/17 03:02 Dose: 100 mls/hr Cefazolin Sodium 1 gm/ Sodium (Chloride) 50 mls @ 200 mls/hr IVPB Q8H [facility] Last Admin: 05/31/17 07:49 Dose: 200 mls/hr Magnesium Hydroxide (Milk Of Magnesia Liq*) 30 ml PO DAILY PRN PRN Reason: UNTIL BM Last Admin: 05/29/17 21:10 Dose: 30 ml Morphine Sulfate (Morphine Inj (Syringe)*) 4 mg IV Q4H PRN PRN Reason: PAIN - SEVERE Last Admin: 05/29/17 15:59 Dose: 4 mg Morphine Sulfate (Morphine Inj (Syringe)*) 2 mg IV Q4H PRN PRN Reason: PAIN - MILD Last Admin: 05/28/17 12:17 Dose: 2 mg Nicotine (Nicotine Inhaler*) 10 mg INH Q2H PRN PRN Reason: CRAVING Last Admin: 05/30/17 17:44 Dose: 10 mg Nicotine (Nicotine Patch 21 Mg/24 Hr*) 1 patch TRANSDERM Q24H JERMAINE Last Admin: 05/31/17 07:49 Dose: Not Given Nicotine Polacrilex (Nicotine Gum*) 2 mg PO Q2H PRN PRN Reason: CRAVING Last Admin: 05/30/17 20:26 Dose: 2 mg Ondansetron HCl (Zofran Inj*) 4 mg IV Q6H PRN PRN Reason: NAUSEA Ondansetron HCl (Zofran Tab*) 4 mg PO Q6H PRN PRN Reason: NAUSEA Pharmacy Profile Note (Nicotine Patch Removal Note*) 1 note PATCH OFF 2100 JERMAINE Last Admin: 05/30/17 21:35 Dose: 1 note Polyethylene Glycol/Electrolytes (Miralax*) 17 gm PO BID PRN PRN Reason: CONSTIPATION Senna (Senokot Tab*) 2 tab PO DAILY PRN PRN Reason: CONSTIPATION Tramadol HCl (Ultram*) 100 mg PO Q6H PRN PRN Reason: PAIN - SEVERE Last Admin: 05/31/17 07:48 Dose: 100 mg Tramadol HCl (Ultram*) 50 mg PO Q6H PRN PRN Reason: PAIN - MODERATE Last Admin: 05/29/17 05:49 Dose: 50 mg Vital Signs 05/30/17 05/30/17 05/30/17 11:52 15:24 15:34 Temperature 98.6 F 98.6 F Pulse Rate 75 81 Respiratory 14 21 16 Rate Blood Pressure 133/82 144/87 (mmHg) O2 Sat by Pulse 100 Oximetry 05/30/17 05/30/17 05/30/17 17:34 19:43 19:45 Temperature 98.4 F Pulse Rate 71 Respiratory 14 21 16 Rate Blood Pressure 142/82 (mmHg) O2 Sat by Pulse 93 Oximetry 05/30/17 05/30/17 05/31/17 23:46 23:55 01:55 Temperature 97.8 F Pulse Rate 58 Respiratory 16 16 16 Rate Blood Pressure 138/77 (mmHg) O2 Sat by Pulse 98 Oximetry 05/31/17 05/31/17 05/31/17 03:27 07:39 07:48 Temperature 97.9 F 97.9 F Pulse Rate 51 66 Respiratory 16 16 18 Rate Blood Pressure 130/73 134/80 (mmHg) O2 Sat by Pulse 98 95 Oximetry 05/31/17 08:00 Temperature Pulse Rate Respiratory 16 Rate Blood Pressure (mmHg) O2 Sat by Pulse Oximetry Oxygen Devices in Use Now: None Appearance: Young female, pleasant, lying in bed, NAD Ears/Nose/Mouth/Throat: Clear Oropharnyx, Mucous Membranes Moist Neck: NL Appearance and Movements; NL JVP Respiratory: Symmetrical Chest Expansion and Respiratory Effort, Clear to Auscultation Cardiovascular: - - S1, S2 with occasional premature beat, no murmurs noted Abdominal: NL Sounds; No Tenderness; No Distention Extremities: - - LUE with c/d/i dressing - did not take down, good movement to distal fingers, cap refill brisk bilaterally Neurological: Alert and Oriented x 3, NL Muscle Strength and Tone Lines/Tubes/Other Access: Clean, Dry and Intact Peripheral IV Nutrition: Taking PO's Result Diagrams: 05/28/17 08:38 05/29/17 06:50 Additional Lab and Data: Lab Results 05/27/17 05/27/17 05/27/17 Range/Units 16:40 16:40 16:40 WBC 10.0 (3.5-10.8) 10^3/ul RBC 4.01 (4.0-5.4) 10^6/ul Hgb 11.5 L (12.0-16.0) g/dl Hct 34 L (35-47) % MCV 84 (80-97) fL MCH 29 (27-31) pg MCHC 34 (31-36) g/dl RDW 13 (10.5-15) % Plt Count 202 (150-450) 10^3/ul MPV 8 (7.4-10.4) um3 Neut % (Auto) 70.2 (38-83) % Lymph % (Auto) 20.7 L (25-47) % Shannon % (Auto) 6.6 (1-9) % Eos % (Auto) 1.0 (0-6) % Baso % (Auto) 1.5 (0-2) % Absolute Neuts (auto) 7.0 (1.5-7.7) 10^3/ul Absolute Lymphs (auto) 2.1 (1.0-4.8) 10^3/ul Absolute Monos (auto) 0.7 (0-0.8) 10^3/ul Absolute Eos (auto) 0.1 (0-0.6) 10^3/ul Absolute Basos (auto) 0.1 (0-0.2) 10^3/ul Absolute Nucleated RBC 0 10^3/ul Nucleated RBC % 0 Sodium 136 (133-145) mmol/L Potassium 3.9 (3.5-5.0) mmol/L Chloride 107 (101-111) mmol/L Carbon Dioxide 24 (22-32) mmol/L Anion Gap 5 (2-11) mmol/L BUN 9 (6-24) mg/dL Creatinine 0.52 (0.51-0.95) mg/dL Est GFR ( Amer) 175.7 (>60) Est GFR (Non-Af Amer) 136.7 (>60) BUN/Creatinine Ratio 17.3 (8-20) Glucose 96 (70-100) mg/dL Lactic Acid 0.6 (0.5-2.0) mmol/L Calcium 8.6 (8.6-10.3) mg/dL Total Bilirubin 0.40 (0.2-1.0) mg/dL AST 14 (13-39) U/L ALT 13 (7-52) U/L Alkaline Phosphatase 62 (34-104) U/L C-Reactive Protein 34.11 H (< 5.00) mg/L Total Protein 7.4 (6.4-8.9) g/dL Albumin 3.4 (3.2-5.2) g/dL Globulin 4.0 (2-4) g/dL Albumin/Globulin Ratio 0.9 L (1-3) Microbiology and Other Data: Microbiology 05/28/17 14:18 Anaerobic Culture - Preliminary Wound Skin and Soft Tissue MRSA/MSSA (PCR - Final Mrsa Negative S.aureus Negative Gram Stain - Final Wound Culture - Preliminary Streptococcus Intermedius 05/28/17 14:18 Anaerobic Culture - Preliminary Wound Gram Stain - Final Wound Culture - Final Streptococcus Intermedius Assessment/Plan - Billing Ms. Kathleen Coronado is a 32 yo female who presented to the ED on 05/27/17 with left distal forearm pain, redness and swelling, secondary to IVDU and was admitted to the ortho service with concern for left forearm/wrist cellulitis and left flexor carpi ulnaris myositis with possible abscess. Plan By Medical Problem: 1. Left forearm/wrist cellulitis - s/p I&D, management per ortho. Patient's pain appears well controlled - IV Morphine discontinued. Continue with prn tramadol, could also add ibuprofen. 2. Hx of IVDU - patient is on outpatient buprenorphine. As this is not a new prescription for the patient, we can continue this medication here in the hospital to help the patient with opiate withdrawal. PRN clonidine also ordered. 3. Chest discomfort - unclear etiology. Patient has no known risk factors for heart disease. No murmur noted, but will check EKG and echocardiogram, as patient has risk factors for endocarditis. 4. Question hx of Hepatitis C - will check HIV/Hep C PCR 5. Tobacco abuse - continue prn nicotine replacement. Smoking cessation education ordered. VTE PPX: Per ortho, continue SCDs and encourage ambulation. Diet: Regular diet HCP/SDM: Mother, Zuleyka Cheek Code Status: Full Admission Status and Rationale: Inpatient admission, dispo per ortho. Hospitalist co-medical management. Counseling and/or Coordination of Care Minutes: 60
[2017-05-31] MEDS ORDERED: cloNIDine TAB* 0.1 MG PO PRN (11:36)
[2017-05-31] MEDS: Buprenorphine TAB* 8 MG PO SCH ×2 (11:46→20:29)
[2017-05-31] MEDS: Nicotine GUM* 2 MG PO PRN ×4 (13:42→20:31)
[2017-05-31 15:16] LABS: Call Hep C TO BE CALLED
[2017-05-31] MEDS: Nicotine Inhaler* 10 MG AMP INH PRN ×3 (15:47→20:30)
[2017-05-31] MEDS: Acetaminophen TAB* 325 MG PO PRN (18:52)
[2017-05-31] MEDS: Nicotine Patch Removal NOTE PATCH OFF SCH (20:35)
[2017-06-01] MEDS: Nicotine PATCH 21 MG/24 HR* PATCH TRANSDERM SCH (06:29)
[2017-06-01] MEDS: ceFAZolin VIAL(*) 1 GM in NS 0.9% 50 ML* 50 ML IVPB SCH ×3 (08:34→23:38)
[2017-06-01] MEDS: Docusate CAP* 100 MG PO SCH ×2 (08:35→20:42)
[2017-06-01] MEDS: Buprenorphine TAB* 8 MG PO SCH ×2 (08:39→20:43)
--- NOTE | 2017-06-01 09:03 | PN ---
Progress Note - Progress Note Date of Service: 06/01/17 SOAP: Subjective: [Pt was seen lying in bed this morning S/P left forearm abscess I&D. She states that pain is well controlled. She states that she has been continuing soaks. Also continuing ROM of the wrist and fingers. Denies f/c/ns, Denies nausea and vomiting. Objective: Gen: A&Ox3, NAD LUE: Dressing is c/d/i. Full f/e at MCP, PIP and DIP joints with minimal pain. N /V intact Assessment: S/P left forearm abscess I&D Plan: Continue warm water soaks Continue IV abx <Juan Manuel Howard - Last Filed: 06/01/17 09:01> - Progress Note SOAP: Subjective: Patient is more comfortable. Does not think that she is actively in withdrawal. Hospitalist consult- because patient no longer in pain, Morphine discontinued. Patient now on Buprenorphine as well as Clonidine/Tramadol/Ibuprofen prn. L wrist/forearm is much less painful. Pt has continued twice daily soaks Objective: Pt appears much more comfortable, non-toxic. LUE: - Purulent drainage about incision - Gap in incision distally where the packing is and where I removed 1 stitch on Friday, 2 days ago to allow for better drainage - Packing in place - Significant reduction in swelling forearm/wrist/hand. There is now no clear soft tissue swelling of forearm, wrist, or volar hand now. There is still some mild soft tissue swelling dorsal hand. - No skin erythema, no streaking. - No pain c digital PROM - NVID - Near full active ROM of all joints hand Microbiology 05/28/17 14:18 Wound Anaerobic Culture - Final 05/28/17 14:18 Wound Wound Culture - Final Streptococcus Intermedius 05/28/17 14:18 Wound Anaerobic Culture - Final 05/28/17 14:18 Wound Gram Stain - Final Mrsa Negative S.aureus Negative 05/28/17 14:18 Wound Wound Culture - Preliminary Streptococcus Intermedius Selected Entries 06/01/17 03:34 Temperature 97.9 F Pulse Rate 54 Respiratory 16 Rate Blood Pressure 121/59 (mmHg) O2 Sat by Pulse 95 Oximetry Laboratory Tests 05/27/17 05/27/17 05/28/17 16:40 16:40 08:38 WBC 10.0 C-Reactive Protein 34.11 H 65.62 H Hepatitis C Antibody 05/28/17 05/31/17 08:38 12:17 WBC 10.0 C-Reactive Protein Hepatitis C Antibody High reactive H Assessment: 1. POD 4 I&D L forearm/FCU tendon abscess with Streptococcus Intermedius 2. IVDU Plan: - Continue IV abx, Ancef - Sensitivities are not readily available. We will ask micro lab for these. - Continue twice daily warm soapy soaks for 20 minutes - I pulled packing back 1 cm - Given the level of remaining purulence, I would not be comfortable sending patient home on PO abx today. Anticipate 1-2 days additional IV abx as an inpatient. IV abx as an outpatient not an option given IVDU. - Significant day-to-day improvement in exam, especially today compared with 2 days ago. - ID consult tomorrow. [facility] will be in town. <Haider Le - Last Filed: 06/01/17 09:28>
[2017-06-01] MEDS: traMADol TAB* 50 MG PO PRN ×2 (10:05→18:15)
[2017-06-01] MEDS: Nicotine GUM* 2 MG PO PRN ×3 (10:07→20:44)
[2017-06-01] MEDS: Nicotine Inhaler* 10 MG AMP INH PRN ×3 (10:08→20:44)
--- NOTE | 2017-06-01 13:21 | ECHO ---
Patient: MARTHA JACOBS [facility] Rec#: [id number] : 1985 Date: 06/01/2017 Age: 32y Height: 170.18 cm / 67.0 in Weight: 79.38 kg / 175.0 lbs Sex: F BSA: 1.91 Room#: 339 Admit Date#: 05/27/2017 Type: Inpatient Referring: Amanda Gonzalez Reading: Carlitos Gayle MD Loss Prevention/Safety District Manager: Palma Ellison,RDCS,RDMS CC: Jax Vazquez MD Transthoracic Echocardiogram Indication: Endocarditis BP: 121/59 HR: 54 Rhythm: Bradycardia Findings History: IVDU, smoker, left arm abscess. Technical Comments: The study quality is good. Completed 1125 Left Ventricle: The left ventricular chamber size is normal. Global left ventricular wall motion and contractility are within normal limits. There is normal left ventricular systolic function. The estimated ejection fraction is 55-60%. Normal left ventricular diastolic filling is observed. Left Atrium: The left atrial chamber size is normal. Right Ventricle: The right ventricular chamber size and systolic function are within normal limits. Right Atrium: The right atrial cavity size is normal. A prominent chiari network is noted in the right atrium. Aortic Valve: The aortic valve is trileaflet. There is no evidence of aortic valve thickening. Systolic excursion of the aortic valve is normal. There is no evidence of aortic regurgitation. There is no evidence of aortic stenosis. There is no aortic vegetation present. Mitral Valve: The mitral valve leaflets appear normal. There is a trace of mitral regurgitation. No vegetation is observed on the mitral valve. Tricuspid Valve: The tricuspid valve leaflets are normal. There is trace tricuspid regurgitation. No pulmonary hypertension is noted. No vegetation is observed on the tricuspid valve. Pulmonic Valve: The pulmonic valve appears normal. There is no evidence of pulmonic regurgitation. There is no pulmonic stenosis. No vegetation is observed on the pulmonic valve. Pericardium: There is no significant pericardial effusion. Aorta: The aortic root appears normal. There is no dilatation of the aortic arch. Pulmonary Artery: The main pulmonary artery is not well visualized. Venous: The inferior vena cava is dilated. There is a greater than 50% respiratory change in the inferior vena cava dimension. Conclusions There is normal left ventricular systolic function. The estimated ejection fraction is 55-60%. Global left ventricular wall motion and contractility are within normal limits. Normal cardiac chamber sizes. Functionally benign heart valves. No convincing evidence of endocarditis on this transthoracic echocardiogram. If clinical concern remains, consider additional imaging such as transesophageal echocardiography as felt appropriate. There is no prior echocardiogram available to compare with at this time. Measurements Name Value Normal Range RVIDd (AP) 2D 2.9 cm (0.9 - 2.6) RVDdMajor (2D) 3.8 cm (2.2 - 4.4) RAd ISD 4CH 5.5 cm (3.4 - 4.9) RA (A4C)W 4.4 cm (2.9 - 4.6) IVSd (2D) 1 cm (0.6 - 1) LVPWd (2D) 1 cm (0.6 - 1) LVIDd (2D) 4.1 cm (3.6 - 5.4) LVIDs (2D) 2.8 cm - LV FS (2D) 31 % (25 - 45) Aortic Annulus 2.2 cm (1.4 - 2.6) Ao root diameter (2D) 2.9 cm (2.1 - 3.5) Ascending Ao 2.6 cm (2.1 - 3.4) Aortic arch 2.4 cm (1.8 - 3.4) LA dimension (AP) 2D 3.9 cm (2.3 - 3.8) LAd ISD 4CH 4.6 cm (2.9 - 5.3) Name Value Normal Range LA ESV SP 4CH (A/L) 63.14 ml - LA ESV SP 2CH (A/L) 61.6 ml - LA ESV BP (A/L) 64.04 ml - LA ESV BP (A/L) index 33.5 ml/m2 - LA ESV SP 4CH (MOD) 54.64 ml - LA ESV SP 2CH (MOD) 57.77 ml - Name Value Normal Range MV E-wave Vmax 0.8 m/sec - MV deceleration time 229 msec - MV A-wave Vmax 0.5 m/sec - MV E:A ratio 1.6 ratio - P. vein S-wave Vmax 0.6 m/sec - P. vein D-wave Vmax 0.7 m/sec - P. vein S:D Vmax ratio 0.9 ratio - P. vein A-wave duration 83 msec - LV septal e' Vmax 0.09 m/sec - LV lateral e' Vmax 0.13 m/sec - LV E:e' septal ratio 9 ratio - LV E:e' lateral ratio 6.2 ratio - Name Value Normal Range AV Vmax 1.5 m/sec - AV VTI 33.5 cm - AV peak gradient 9 mmHg - AV mean gradient 5 mmHg - LVOT Vmax 1.5 m/sec - LVOT VTI 28 cm - LVOT peak gradient 9 mmHg - LVOT mean gradient 3.8 mmHg - VAIBHAV Vmax 1.4 m/sec - Name Value Normal Range TR Vmax 2.6 m/sec - TR peak gradient 27 mmHg - RAP 3 mmHg - RVSP 30 mmHg - IVC diameter 2.4 cm - Name Value Normal Range PV Vmax 1.1 m/sec - PV peak gradient 5 mmHg -
--- NOTE | 2017-06-01 15:47 | PN ---
Subjective Date of Service: 06/01/17 Interval History: Patient seen and examined at bedside. Pt denies fever, chills, shortness of breath, chest discomfort, N/V/D. Pt states that pain is controlled. Family History: Unchanged from Admission - Reports hx of heart disease in one grandfather and DM in another grandfather Social History: Unchanged from Admission - Lives alone, current smoker. 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 Records indicate history of hepatitis C. Hx of Objective Active Medications: Acetaminophen (Tylenol Tab*) 650 mg PO Q6H PRN Reason: PAIN/FEVER Buprenorphine HCl (Subutex Tab*) 8 mg PO BID JERMAINE Clonidine HCl (Catapres Tab*) 0.1 mg PO TID PRN Reason: WITHDRAWAL - OPIATE Diphenhydramine HCl (Benadryl Po*) 25 mg PO Q6H PRN Reason: ITCHING Diphenhydramine HCl (Benadryl Iv*) 25 mg IV Q6H PRN Reason: Itching or insomnia Docusate Sodium (Colace Cap*) 100 mg PO BID JERMAINE Sodium Chloride (Ns 0.9% 1000 Ml*) 1,000 mls @ 100 mls/hr IV .PER RATE JERMAINE Cefazolin Sodium 1 gm/ Sodium (Chloride) 50 mls @ 200 mls/hr IVPB Q8H JERMAINE Magnesium Hydroxide (Milk Of Magnesia Liq*) 30 ml PO DAILY PRN Reason: UNTIL BM Nicotine (Nicotine Inhaler*) 10 mg INH Q2H PRN Reason: CRAVING Nicotine (Nicotine Patch 21 Mg/24 Hr*) 1 patch TRANSDERM Q24H JERMAINE Nicotine Polacrilex (Nicotine Gum*) 2 mg PO Q2H PRN Reason: CRAVING Ondansetron HCl (Zofran Inj*) 4 mg IV Q6H PRN Reason: NAUSEA Ondansetron HCl (Zofran Tab*) 4 mg PO Q6H PRN Reason: NAUSEA Pharmacy Profile Note (Nicotine Patch Removal Note*) 1 note PATCH OFF 2100 JERMAINE Polyethylene Glycol/Electrolytes (Miralax*) 17 gm PO BID PRN Reason: CONSTIPATION Senna (Senokot Tab*) 2 tab PO DAILY PRN Reason: CONSTIPATION Tramadol HCl (Ultram*) 100 mg PO Q6H PRN Reason: PAIN - SEVERE Tramadol HCl (Ultram*) 50 mg PO Q6H PRN Reason: PAIN - MODERATE Vital Signs 05/31/17 05/31/17 05/31/17 15:48 17:48 19:22 Temperature 98.2 F Pulse Rate 66 Respiratory 18 16 20 Rate Blood Pressure 167/75 (mmHg) O2 Sat by Pulse 96 Oximetry 05/31/17 05/31/17 06/01/17 22:29 23:54 00:16 Temperature 98.0 F Pulse Rate 52 Respiratory 15 12 16 Rate Blood Pressure 143/65 (mmHg) O2 Sat by Pulse 98 Oximetry 06/01/17 06/01/17 06/01/17 03:34 07:27 08:00 Temperature 97.9 F 98.3 F Pulse Rate 54 53 Respiratory 16 16 16 Rate Blood Pressure 121/59 131/65 (mmHg) O2 Sat by Pulse 95 97 Oximetry 06/01/17 06/01/17 11:30 12:05 Temperature 98.1 F Pulse Rate 67 Respiratory 16 16 Rate Blood Pressure 122/64 (mmHg) O2 Sat by Pulse 98 Oximetry Oxygen Devices in Use Now: None Appearance: NAD, sitting up in bed Eyes: No Scleral Icterus Ears/Nose/Mouth/Throat: Mucous Membranes Moist Respiratory: Symmetrical Chest Expansion and Respiratory Effort, Clear to Auscultation Cardiovascular: NL Sounds; No Murmurs; No JVD, RRR Abdominal: NL Sounds; No Tenderness; No Distention Skin: - - Dressing to left wrist clean, dry and intact. Neurological: Alert and Oriented x 3, NL Muscle Strength and Tone Lines/Tubes/Other Access: Clean, Dry and Intact Peripheral IV - site benign, Clean, Dry and Intact Central Line - Right IJ, site benign Nutrition: Taking PO's Result Diagrams: 05/28/17 08:38 05/29/17 06:50 Additional Lab and Data: Microbiology and Other Data: Microbiology 05/28/17 14:18 Anaerobic Culture - Preliminary Wound Skin and Soft Tissue MRSA/MSSA (PCR - Final Mrsa Negative S.aureus Negative Gram Stain - Final Wound Culture - Preliminary Streptococcus Intermedius 05/28/17 14:18 Anaerobic Culture - Preliminary Wound Gram Stain - Final Wound Culture - Final Streptococcus Intermedius Assess/Plan/Problems-Billing Ms. Kathleen Coornado is a 32 yo female who presented to the ED on 05/27/17 with left distal forearm pain, redness and swelling, secondary to IVDU and was admitted to the ortho service with concern for left forearm/wrist cellulitis and left flexor carpi ulnaris myositis with possible abscess. - Patient Problems (1) Cellulitis Code(s): L03.90 - CELLULITIS, UNSPECIFIED SNOMED Code(s): 641759907 Comment: - Left forearm/wrist cellulitis - s/p I&D, POD #4 - Management per ortho. - Patient's pain appears well controlled Continue with prn tramadol, prn ibuprofen and buprenorphine. - Wound culture with streptococcus intermedius. - ID consult pending - Continue ancef (2) History of drug abuse Code(s): Z87.898 - PERSONAL HISTORY OF OTHER SPECIFIED CONDITIONS SNOMED Code( s): 586096933 Comment: - Continue buprenorphine and PRN clonidine (3) Chest discomfort Code(s): R07.89 - OTHER CHEST PAIN SNOMED Code(s): 876738384 Comment: - Resolved - No signs of endocarditis on echo (4) Hepatitis C Comment: - Hep C antibody positive (5) Tobacco abuse Code(s): Z72.0 - TOBACCO USE SNOMED Code(s): 126010774 Comment: - Continue prn nicotine replacement. - Smoking cessation education ordered. (6) DVT prophylaxis Code(s): PEL1816 - SNOMED Code(s): 277138737 Comment: - Per ortho, continue SCDs and encourage ambulation. (7) Full code status Code(s): Z78.9 - OTHER SPECIFIED HEALTH STATUS SNOMED Code(s): 079202733 Status and Disposition: Inpatient. Discharge per Ortho. Hospitalist co-medical management.
[2017-06-01] MEDS: Nicotine Patch Removal NOTE PATCH OFF SCH (20:44)
[2017-06-02] MEDS: traMADol TAB* 50 MG PO PRN ×3 (00:03→17:53)
[2017-06-02] MEDS: Nicotine PATCH 21 MG/24 HR* PATCH TRANSDERM SCH (06:05)
[2017-06-02] MEDS: Docusate CAP* 100 MG PO SCH ×2 (08:10→19:53)
[2017-06-02] MEDS: ceFAZolin VIAL(*) 1 GM in NS 0.9% 50 ML* 50 ML IVPB SCH ×3 (08:10→23:51)
[2017-06-02] MEDS: Buprenorphine TAB* 8 MG PO SCH ×2 (08:10→19:53)
[2017-06-02] MEDS: Nicotine GUM* 2 MG PO PRN ×4 (08:24→19:54)
[2017-06-02] MEDS: Nicotine Inhaler* 10 MG AMP INH PRN ×4 (08:24→19:54)
--- NOTE | 2017-06-02 09:42 | PN ---
Progress Note - Progress Note Date of Service: 06/02/17 SOAP: Subjective: []Patient seen at bedside, currently soaking her wound. She is doing well overall and her pain is much improved. Waiting on ID consult with Dr. Claros. Denies n/v/d Objective: [] Vital Signs Temp 98.1 F 06/02/17 07:09 Pulse 43 06/02/17 07:09 Resp 16 06/02/17 08:10 BP 114/58 06/02/17 07:09 Pulse Ox 97 06/02/17 07:09 Intake & Output 06/01/17 06/02/17 06/02/17 18:59 06:59 18:59 Intake Total 1140 946 Output Total 1150 1125 Balance -10 -179 Intake: IV Fluids 10 110 ABX - CEFAZOLIN 10 110 IVPB 50 ABX - CEFAZOLIN 50 Oral 1080 836 Output: Urine 1150 1125 Laboratory Results - last 24 hr 05/31/17 12:17 Hepatitis C Antibody High reactive H HIV 1&2 Antibody Nonreactive Microbiology 05/28/17 14:18 Anaerobic Culture - Final Wound Skin and Soft Tissue MRSA/MSSA (PCR - Final Mrsa Negative S.aureus Negative Gram Stain - Final Wound Culture - Final Streptococcus Intermedius 05/28/17 14:18 Anaerobic Culture - Final Wound Gram Stain - Final Wound Culture - Final Streptococcus Intermedius Left volar forearm mild incisional erythema and some wet necrosis on wound edges , 1 cm open wound, some wet necrosis noted with packing which has been slowly removed daily by Dr. Le daily. minimal tenderness surrounding her wound She is moving all digits well with full flexion and extension at MCPs NVID Assessment: []FCU tendon infection/ abscess LUE s/p I&D POD #5 Plan: []Currently on Cefazolin, wait final PO recommendations by Dr. Claros Anticipate discharge home in 1-2 days when OK with Dr. Le
--- NOTE | 2017-06-02 12:23 | CONS ---
CONSULTATION REPORT: DATE OF CONSULT: 06/02/17 REQUESTING PHYSICIAN: Dr. Le. CONSULTING SERVICE: Infectious Disease. REASON FOR CONSULT: Left wrist infection. IMPRESSION: 1. Injection drug use with recent relapse, in brief remission, and injecting in the left forearm, developed swelling, redness, wrist stiffness. MRI showed fluid collection in the flexor carpi ulnaris, which was 1 x 1 cm with diffuse edema and swelling of flexor carpi ulnaris muscle. She had incision and debridement on 05/30/17 that showed left forearm abscess, involved the muscle and suppurative tenosynovitis of the flexor carpi ulnaris tendon. She has had consistent improvement since then on Ancef. The culture has grown Streptococcus intermedius, which is oral ron often associated with injection process. She was systemically otherwise well and there is no evidence or symptoms to suggest bacteremia. 2. Positive hepatitis C antibody which has been detected in the past and viral load was negative in the past; this may just reflect past cleared infection. RECOMMENDATION: 1. Agree with Ancef, I will recheck tomorrow, as long as she continues to improve, we could send her home on Keflex 500 mg by mouth 3 times a day for another 10 days. 2. Hepatitis C viral load to be drawn as an outpatient to ensure she has not had re-infection with hepatitis C. HISTORY OF PRESENT ILLNESS: This is a 32-year-old woman with injection drug use , admitted with left arm infection. She had relapsed about 2 weeks ago and injected in the left forearm. She developed swelling, redness, and pain end of last week in left wrist and forearm, was difficult to move her wrist or finger. She came to the ER. MRI was done with findings as noted above. She was started on vancomycin. She had incision and debridement with Dr. Le. Two wound cultures were taken both growing Strep intermedius. She has been on Ancef. She remains afebrile. She has had continued improvement in the wrist flexion and extension and finger flexion and extension. Her overall pain is significantly improved as is the swelling. She has not had infection like this in the past. She does not have pain elsewhere. PAST MEDICAL HISTORY: 1. Positive hepatitis C antibody, evidence of cleared infection. 2. Opioid maintenance therapy. 3. Status post . MEDICATIONS: 1. Tylenol. 2. Buprenorphine. 3. Cefazolin 1 g every 8 hours. 4. Nicotine inhaler. 5. Nicotine gum. 6. Nicotine patch. 7. Clonidine as needed. 8. Tramadol. ALLERGIES: No known drug allergies. FAMILY HISTORY: No recurrent infections. SOCIAL HISTORY: She lives in [facility]. She is a home health aide, has an online business. She is . REVIEW OF SYSTEMS: All negative to full review of systems except as noted above. PHYSICAL EXAM: Vital Signs: Temperature is 37, heart rate is 45, respiratory rate 17, blood pressure 115/50, O2 sat 97% on room air. In general, she is awake, not in distress. Neurologic: She is oriented x3. Follows all commands. HEENT: There is no conjunctival hemorrhage. Oropharynx without lesions. Neck: Supple, without nuchal rigidity. Lymph Nodes: There is no cervical, supraclavicular, axillary, or epitrochlear lymphadenopathy. Heart: Regular rate and rhythm, without murmurs, rubs, or gallops. Lungs: Clear to auscultation bilaterally. Abdomen: Soft, nontender, and nondistended. There are bowel sounds present. Skin: There is no rash or splinter hemorrhages. Musculoskeletal: In the left volar forearm, there is a 1-cm incision with scant serous drainage with a packing material present, but no surrounding erythema, there is mild surrounding edema, there is no induration. The left wrist range of motion is intact as is finger flexion and extension. LABORATORY DATA: White blood cell count 10, hemoglobin 11, platelets 190. Creatinine was 0.4. CRP 65 on 05/28/17. Please see impressions and recommendations outlined above. Thanks for asking me to see Liliya Kathleen Coronado in consultation. [id number]/[facility] #: [id number] MARTIN
--- NOTE | 2017-06-02 15:15 | PN ---
Subjective Date of Service: 06/02/17 Interval History: Patient seen and examined at bedside. Pt states that she is having some pain, but it is controlled. Denies fever, chills, shortness of breath, chest discomfort, N/V/D. Family History: Unchanged from Admission - Reports hx of heart disease in one grandfather and DM in another grandfather Social History: Unchanged from Admission - Lives alone, current smoker. 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 Records indicate history of hepatitis C. Hx of Objective Active Medications: Acetaminophen (Tylenol Tab*) 650 mg PO Q6H PRN Reason: PAIN/FEVER Buprenorphine HCl (Subutex Tab*) 8 mg PO BID JERMAINE Clonidine HCl (Catapres Tab*) 0.1 mg PO TID PRN Reason: WITHDRAWAL - OPIATE Diphenhydramine HCl (Benadryl Po*) 25 mg PO Q6H PRN Reason: ITCHING Diphenhydramine HCl (Benadryl Iv*) 25 mg IV Q6H PRN Reason: Itching or insomnia Docusate Sodium (Colace Cap*) 100 mg PO BID JERMAINE Sodium Chloride (Ns 0.9% 1000 Ml*) 1,000 mls @ 100 mls/hr IV .PER RATE JERMAINE Cefazolin Sodium 1 gm/ Sodium (Chloride) 50 mls @ 200 mls/hr IVPB Q8H JERMAINE Magnesium Hydroxide (Milk Of Magnesia Liq*) 30 ml PO DAILY PRN Reason: UNTIL BM Nicotine (Nicotine Inhaler*) 10 mg INH Q2H PRN Reason: CRAVING Nicotine (Nicotine Patch 21 Mg/24 Hr*) 1 patch TRANSDERM Q24H JERMAINE Nicotine Polacrilex (Nicotine Gum*) 2 mg PO Q2H PRN Reason: CRAVING Ondansetron HCl (Zofran Inj*) 4 mg IV Q6H PRN Reason: NAUSEA Ondansetron HCl (Zofran Tab*) 4 mg PO Q6H PRN Reason: NAUSEA Pharmacy Profile Note (Nicotine Patch Removal Note*) 1 note PATCH OFF 2100 JERMAINE Polyethylene Glycol/Electrolytes (Miralax*) 17 gm PO BID PRN Reason: CONSTIPATION Senna (Senokot Tab*) 2 tab PO DAILY PRN Reason: CONSTIPATION Tramadol HCl (Ultram*) 100 mg PO Q6H PRN Reason: PAIN - SEVERE Tramadol HCl (Ultram*) 50 mg PO Q6H PRN Reason: PAIN - MODERATE Vital Signs 06/01/17 06/01/17 06/01/17 15:19 18:15 19:21 Temperature 98.0 F Pulse Rate 52 Respiratory 16 16 16 Rate Blood Pressure 121/55 (mmHg) O2 Sat by Pulse 97 Oximetry 06/01/17 06/01/17 06/01/17 19:33 20:15 20:43 Temperature 98.1 F Pulse Rate 66 Respiratory 14 15 15 Rate Blood Pressure 135/77 (mmHg) O2 Sat by Pulse 99 Oximetry 06/01/17 06/01/17 06/02/17 22:43 23:37 00:03 Temperature 98.2 F Pulse Rate 60 Respiratory 15 16 15 Rate Blood Pressure 141/78 (mmHg) O2 Sat by Pulse 99 Oximetry 06/02/17 06/02/17 06/02/17 01:54 03:24 07:09 Temperature 97.8 F 98.1 F Pulse Rate 48 43 Respiratory 14 16 17 Rate Blood Pressure 143/45 114/58 (mmHg) O2 Sat by Pulse 95 97 Oximetry 06/02/17 06/02/17 10:10 11:12 Temperature 97.8 F Pulse Rate 83 Respiratory 16 16 Rate Blood Pressure 168/85 (mmHg) O2 Sat by Pulse 99 Oximetry Oxygen Devices in Use Now: None Appearance: NAD, laying in bed Eyes: No Scleral Icterus Ears/Nose/Mouth/Throat: Mucous Membranes Moist Respiratory: Symmetrical Chest Expansion and Respiratory Effort, Clear to Auscultation Cardiovascular: NL Sounds; No Murmurs; No JVD, RRR Abdominal: NL Sounds; No Tenderness; No Distention Extremities: No Edema Skin: - - Dressing to left wrist clean, dry and intact Neurological: Alert and Oriented x 3, NL Muscle Strength and Tone Lines/Tubes/Other Access: Clean, Dry and Intact Peripheral IV - site benign, Clean, Dry and Intact Other Access - Right IJ, site intact Nutrition: Taking PO's Result Diagrams: 05/28/17 08:38 05/29/17 06:50 Additional Lab and Data: Microbiology and Other Data: Microbiology 05/28/17 14:18 Anaerobic Culture - Preliminary Wound Skin and Soft Tissue MRSA/MSSA (PCR - Final Mrsa Negative S.aureus Negative Gram Stain - Final Wound Culture - Preliminary Streptococcus Intermedius 05/28/17 14:18 Anaerobic Culture - Preliminary Wound Gram Stain - Final Wound Culture - Final Streptococcus Intermedius Assess/Plan/Problems-Billing Ms. Kathleen Coronado is a 32 yo female who presented to the ED on 05/27/17 with left distal forearm pain, redness and swelling, secondary to IVDU and was admitted to the ortho service with concern for left forearm/wrist cellulitis and left flexor carpi ulnaris myositis with possible abscess. - Patient Problems (1) Cellulitis Code(s): L03.90 - CELLULITIS, UNSPECIFIED SNOMED Code(s): 642262529 Comment: - Left forearm/wrist cellulitis - s/p I&D, POD #5 - Management per ortho. - Patient's pain appears well controlled Continue with prn tramadol, prn ibuprofen and buprenorphine. - Wound culture with streptococcus intermedius. - ID consult, input appreciated - Continue ancef (2) History of drug abuse Code(s): Z87.898 - PERSONAL HISTORY OF OTHER SPECIFIED CONDITIONS SNOMED Code( s): 207264606 Comment: - Continue buprenorphine and PRN clonidine (3) Chest discomfort Code(s): R07.89 - OTHER CHEST PAIN SNOMED Code(s): 121263994 Comment: - Resolved - No signs of endocarditis on echo (4) Hepatitis C Comment: - Hep C antibody positive - Pt should have a Hep C viral load checked as an outpatient (5) Tobacco abuse Code(s): Z72.0 - TOBACCO USE SNOMED Code(s): 794568159 Comment: - Continue prn nicotine replacement. - Smoking cessation education ordered. (6) DVT prophylaxis Code(s): [id number] - SNOMED Code(s): 856445945 Comment: - Per ortho, continue SCDs and encourage ambulation. (7) Full code status Code(s): Z78.9 - OTHER SPECIFIED HEALTH STATUS SNOMED Code(s): 675611581 Status and Disposition: Inpatient. Discharge per Ortho. Hospitalist co-medical management. Will sign of at this time. Please call for any questions or concerns.
[2017-06-02] MEDS: Nicotine Patch Removal NOTE PATCH OFF SCH (19:55)
[2017-06-03] MEDS: traMADol TAB* 50 MG PO PRN ×2 (00:18→08:38)
[2017-06-03] MEDS: ceFAZolin VIAL(*) 1 GM in NS 0.9% 50 ML* 50 ML IVPB SCH (08:30)
[2017-06-03] MEDS: Magnesium Hydroxide LIQ* 30 ML UDC PO PRN (08:37)
[2017-06-03] MEDS: Nicotine PATCH 21 MG/24 HR* PATCH TRANSDERM SCH (08:38)
[2017-06-03] MEDS: Docusate CAP* 100 MG PO SCH (08:38)
[2017-06-03] MEDS: Buprenorphine TAB* 8 MG PO SCH (08:47)
[2017-06-03] MEDS: Nicotine Inhaler* 10 MG AMP INH PRN ×2 (08:47→14:13)
[2017-06-03] MEDS: Nicotine GUM* 2 MG PO PRN ×2 (09:29→14:14)
--- NOTE | 2017-06-03 09:39 | PN ---
Progress Note - Progress Note Date of Service: 06/03/17 SOAP: Subjective: []Patient seen at bedside soaking LUE. Continues to do well. Was told by Dr. Le yesterday that she may go home today or tomorrow. Objective: [] Vital Signs Temp 97.5 F 06/03/17 03:34 Pulse 55 06/03/17 03:34 Resp 16 06/03/17 08:47 BP 94/41 06/03/17 03:34 Pulse Ox 96 06/03/17 03:34 Intake & Output 06/02/17 06/03/17 06/03/17 18:59 06:59 18:59 Intake Total 530 1900 120 Output Total 200 900 Balance 330 1000 120 Intake: IV Fluids 10 NS (0.9%) 10 IVPB 55 ABX - CEFAZOLIN 55 Oral 465 1900 120 Output: Urine 200 900 Other: # Bowel Movements 0 Laboratory Results - last 24 hr 05/31/17 12:17 Hepatitis C Antibody High reactive H HIV 1&2 Antibody Nonreactive LUE soaking, even less surrounding incisional erythema, less wet necrosis. Packing still visible through distal opening. continues to move all digits freely without pain NVID Assessment: []s/p I&D Left FCU infection/ abscess POD #6 Plan: []Continue IV Cefazolin, home on po Keflex 500 mg TID x [address] Claros 's recommendation once OK with Dr. Le
[2017-06-03 13:36] VITALS: BP 111/58
--- NOTE | 2017-06-03 13:42 | PN ---
Progress Note - Progress Note Date of Service: 06/03/17 SOAP: Subjective: DOS: 06/03/17 CC: arm infection HPI: 32 yo woman with left forearm infection s/p I&D. Swelling and pain continue to improve. Can move fingers and wrist without pain. No fever, rash, or diarrhea. Objective: [] Vital Signs Temp 36.7 C 06/03/17 11:47 Pulse 55 06/03/17 11:47 Resp 16 06/03/17 11:47 BP 111/58 06/03/17 11:47 Pulse Ox 100 06/03/17 11:47 Intake & Output 06/02/17 06/03/17 06/03/17 18:59 06:59 18:59 Intake Total 530 1900 120 Output Total 200 900 Balance 330 1000 120 Intake: IV Fluids 10 NS (0.9%) 10 IVPB 55 ABX - CEFAZOLIN 55 Oral 465 1900 120 Output: Urine 200 900 Other: # Bowel Movements 0 Gen:awake, no disress HEENT: no oral lesions Neck:supple Heart:RRR no murmur Lungs:CTA BL Abd:+BS NTND soft Skin: No rash MSK: R forearm incision no erythema Assessment: 1. left forearm suppurative tenosynovitis and pyomyositis due to [facility] Strep 2. HCV Ab +, past VL neg 3. IVDU in brief remission Plan: 1. can change to keflex 500 mg po tid x10 days follow up 1-2 weeks, call or return of redness pain or decreased ROM 2. Will recheck HCV VL as outpt
[2017-06-03] MEDS: Acetaminophen TAB* 325 MG PO PRN (15:37)
--- NOTE | 2017-06-04 04:11 | DS ---
DISCHARGE SUMMARY: DATE OF ADMISSION: 05/27/17 DATE OF DISCHARGE: 06/03/17 ATTENDING PHYSICIAN: Dr. Haider Le * (DICTATED BY MADI FLYNN) ADMITTING DIAGNOSES: Left distal forearm abscess, flexor carpi ulnaris tendon. SECONDARY DIAGNOSIS: No current problems. CONSULTATIONS: 1. Infectious Disease. 2. Medicine. HISTORY OF PRESENT ILLNESS: sAhley is a 32-year-old female who presented to the ER on 05/27/17 with a left distal forearm pain, erythema, and swelling. She is an IV drug abuser. She had relapsed 6 days ago on 05/22/17 and injected a needle into her distal volar left forearm. She began to develop pain and redness 2 days after the injection. She went to the ER for evaluation. An MRI was performed and revealed a 1 cm x 1 cm fluid collection. She was then admitted and Dr. Le decided to do an incision irrigation and debridement of the left forearm deep abscess, including the muscle and flexor carpi ulnaris. The date of operation was 05/28/17. HOSPITAL COURSE: The patient was admitted to [facility] on 05/27/17 for a left forearm abscess. She did not improve with conservative therapy; therefore, she was taken to the OR with Dr. Le for an incision irrigation and debridement of the left forearm deep abscess including muscle, flexor carpi ulnaris with Dr. Le on 05/28/17. She recovered briefly in the postanesthesia care unit, was transferred to the surgical stay unit. She was seen by Dr. Claros who recommended a course of Keflex for treatment of the infection. The patient was doing daily soaks twice a day with dressing changes. Her pain was controlled with oral pain medications. Her labs were stable. By postop day 6, she was orthopedically and medically stable for discharge to home. DISCHARGE CONDITION: Stable. DISCHARGE MEDICATIONS: 1. Subutex 8 mg by mouth twice a day. 2. Tramadol 50 mg 1 to 2 by mouth every 6 hours as needed for the pain. 3. Cephalexin 500 mg by mouth 3 times a day x10 days. DISCHARGE INSTRUCTIONS: The patient is to perform soapy soaks twice a day and redress the wound with an Stephen wrap. She should keep the dressing clean and dry. She should elevate her left arm on a pillow. She may work on general range of motion of all the fingers of the left hand; however, she is nonweightbearing of the left hand. She will be on Keflex 500 mg 3 times a day for 10 days per Infectious Disease for treatment of the abscess and tramadol as needed for the pain. She will continue her Subutex at home, which is prescribed by Dr. Collier. She will follow up with Dr. Le on Friday, . She should also make a followup appointment with Dr. Claros. She was instructed to go to the ER if she develops increased redness, drainage from the wound, fever, chills, or chest pain. MADI FLYNN [id number]/[facility] #: [id number] MTDD
== END 2017-06-03 15:50 | disposition home or self-care (01) | DRG 317 ==
LOC: ED 12:53 → SSU 22:05
PROVIDERS: ADMIT Orthopaedic Surgery; ATTEND Internal Medicine
PROC: 0L960ZZ Drainage of Left Lower Arm and Wrist Tendon, Open Approach (ICD-10-PCS; 2017-05-28)
PROC: 0LB60ZZ Excision of Left Lower Arm and Wrist Tendon, Open Approach (ICD-10-PCS; principal; 2017-05-28 12:30)
DX: M65.132 Other infective (teno)synovitis, left wrist (principal); L02.414 Cutaneous abscess of left upper limb; M60.001 Infective myositis, unspecified left arm; B95.4 Other streptococcus as the cause of diseases classified elsewhere; F17.210 Nicotine dependence, cigarettes, uncomplicated; F11.90 Opioid use, unspecified, uncomplicated; B19.20 Unspecified viral hepatitis C without hepatic coma; Z79.899 Other long term (current) drug therapy; Z83.3 Family history of diabetes mellitus; Z82.49 Family history of ischemic heart disease and other diseases of the circulatory system
CPT/HCPCS: 36415; 80053; 80202; 81025; 82565; 83605; 84484; 84520; 85025; 85027; 86140; 86703; 86803; 87070; 87073; 87077; 87186; 87205; 87640; 87641; 93005; 93306; 99406; A9270-GY; J0690; J1100; J2250; J2270; J2405; J2704; J3010; J3370